=== PATIENT | female | born 1950 | race Caucasian/White ===

== ENCOUNTER 2020-09-25 07:01 | Emergency (ER) | payer MEDICARE, SELFPAY ==
--- NOTE | ~2020-09-25 | CT_ITS ---
EXAMINATION: CT ANGIOGRAM HEAD CT ANGIOGRAM NECK CLINICAL INFORMATION: Large vessel occlusion. Aphasia. COMPARISON: CT head from 09/25/2020. TECHNIQUE: Initial noncontrast parachute folder imaging of the head and neck was performed. Comparison is made with noncontrast head CT from earlier today. Test bolus sequences followed by intravenous administration 70 mL of Omnipaque 350. Helical imaging was performed in the axial plane from the aortic arch to the skull vertex. Delayed postcontrast imaging of the head was also performed. The data was processed at the sonography technologist's workstation for generation of MIP sequences. Angled MIPs and volume rendered reformatted images were also generated at an offline 3D workstation. Stenoses are assessed in accordance with NASCET criteria unless otherwise indicated. This CT examination was performed using dose optimization techniques as appropriate, variously including the following: *Automated exposure control. *Adjustment of mA and/or kV according to patient size (this includes techniques or standardized protocols for targeted exams where dose is matched to indication/reason for exam; i.e. extremities or head). *Use of iterative reconstruction technique. DLP: 1439 mGy-cm FINDINGS: CT Head: There is no evidence of acute intracranial hemorrhage or edematous territorial infarction. Scattered hypoattenuation in the periventricular and deep white matter are consistent with moderate microangiopathy. Torres-white matter differentiation is preserved. Proportional prominence of the ventricles and sulcal spaces. No evidence for obstructive hydrocephalus. No abnormal mass effect or midline shift. No extra-axial fluid collections. No pathologic intra-axial enhancement or regional oligemia. No acute soft tissue or osseous abnormalities. The mastoid air cells and paranasal sinuses are clear. Right-sided lens extraction. CT Neck: The thyroid gland and remaining cervical soft tissues are within normal limits. Advanced degenerative disc disease at C5-C6 with disc-osteophyte complex formation. Mild to moderate degenerative disc disease at C4-C5 and C6-C7. Facet and uncovertebral joint arthropathy causes osseous encroachment on the neural foramina from C4-C7. CT Upper Chest: Moderate underlying centrilobular emphysema. The visualized upper mediastinum is within normal limits. Neck CTA: Aortic Arch: Normal contour and caliber with moderate calcific atherosclerotic disease. Great Vessel Origins: No significant stenosis of the branch origins. Right Common Carotid Artery: Normal opacification without focal stenosis or occlusion. Cervical Right Internal Carotid Artery: Normal opacification without focal stenosis or occlusion. Left Common Carotid Artery: Normal opacification without focal stenosis or occlusion. Cervical Left Internal Carotid Artery: Mild calcific atherosclerotic disease of the carotid bulb and proximal internal carotid artery without flow-limiting stenosis. Cervical Right Vertebral Artery: Normal opacification without focal stenosis or occlusion. Cervical Left Vertebral Artery: Dominant. Normal opacification without focal stenosis or occlusion. Brain CTA: Intracranial Internal Carotid Arteries: Mild calcific atherosclerotic disease of the intracranial internal carotid arteries without occlusion or flow-limiting stenosis. Normal contrast opacification of the petrous, cavernous, paraophthalmic, and supraclinoid segments of the internal carotid arteries without focal stenosis. Right Anterior Cerebral Artery: Normal A1 segment. Normal opacification of the distal segments of the MAURICE. Left Anterior Cerebral Artery: Normal A1 segment. Normal opacification of the distal segments of the MAURICE. Anterior Communicating Artery: Normal. Right Middle Cerebral Artery: Normal opacification of the M1 segment of the MCA without focal stenosis or occlusion. Normal arborization of the distal segments. Left Middle Cerebral Artery: Normal opacification of the M1 segment of the MCA without focal stenosis or occlusion. Normal arborization of the distal segments. Right Vertebral Artery: Normal opacification of the V4 segment. Normal opacification of the proximal segments of the posterior inferior cerebellar artery. Left Vertebral Artery: Normal opacification of the V4 segment. Normal opacification of the proximal segments of the posterior inferior cerebellar artery. Basilar Artery: Normal opacification without focal stenosis or occlusion. Normal appearance of the proximal superior cerebellar arteries. Right Posterior Cerebral Artery: Normal P1 segment. Normal posterior communicating artery. Normal opacification of the distal segments of the MOLDER OPERATOR. Left Posterior Cerebral Artery: Normal P1 segment. Normal posterior communicating artery. Normal opacification of the distal segments of the MOLDER OPERATOR. Normal opacification of the superior sagittal, straight, transverse, and sigmoid sinuses. CT/CT angio head neck stroke IMPRESSION: 1. No evidence of acute intracranial hemorrhage or edematous territorial infarction. 2. CTA of the head and neck without proximal occlusion or flow-limiting stenosis. 3. Moderate underlying microangiopathy and generalized cerebral volume loss. 4. Emphysema. This critical result was discussed with Dr. Tadeo at 09:06 on 09/25/2020 and it was ascertained that the content and urgency of the report was understood at the time of direct communication.
--- NOTE | ~2020-09-25 | CT_ITS ---
EXAMINATION: CT HEAD WITHOUT CONTRAST (STROKE PROTOCOL) CLINICAL INFORMATION: Stroke protocol. Aphasia COMPARISON: None TECHNIQUE: Contiguous axial imaging was performed from the skull base to vertex without intravenous administration of contrast. This CT examination was performed using dose optimization techniques as appropriate, variously including the following: *Automated exposure control *Adjustment of mA and/or kV according to patient size (this includes techniques or standardized protocols for targeted exams where dose is matched to indication/reason for exam; i.e. extremities or head) *Use of iterative reconstruction technique DLP: 626 mGy-cm FINDINGS: There is no intracranial hemorrhage, hematoma, or extra-axial fluid collection. The ventricles are symmetrical but moderately dilated. Mild prominence of cortical sulci seen.. There is no hydrocephalus, edema, or mass effect. There is mild periventricular hypodensity especially in both frontal lobes but no mass effect. There is no acute infarct or mass lesion. The calvarium appears intact. There is no pneumocephalus or orbital emphysema. The visualized sinuses and middle ears and mastoid air cells show no significant mucosal thickening. There are no air-fluid levels. CT/CT head for stroke IMPRESSION: No acute intracranial process. Age-related cerebral volume loss with mild chronic small vessel ischemic changes especially in both frontal lobes. This critical result was discussed with Dr. Tadeo at 7:20 AM on 09/25/2020. It was ascertained that the content and urgency of the report was understood at the time of direct communication.
--- NOTE | 2020-09-25 07:06 | ECG_ITS ---
Test Reason : WEAKNESS Blood Pressure : / mmHG Vent. Rate : 101 BPM Atrial Rate : 101 BPM P-R Int : 166 ms QRS Dur : 070 ms QT Int : 352 ms P-R-T Axes : 057 011 065 degrees QTc Int : 456 ms Sinus tachycardia Low voltage QRS Borderline ECG No previous ECGs available Referred By: Harris Tadeo Electronically Signed By:DAVID CULP
--- NOTE | 2020-09-25 07:08 | ED.AMS ---
HPI - Altered Mental Status General Chief Complaint: Seizure Stated Complaint: STROKE ALERT,LKWT LAST EVENING Time Seen by Provider: 09/25/20 07:04 Source: EMS Mode of arrival: EMS Limitations: altered mental status History of Present Illness HPI narrative: Found in her house slumped over, no focal but no alert. Appeared mostly postictal. Symptoms started at 6:20am complaint: altered mental status Onset (ago): minute(s) Time: 06:20 Timing confirmed by: other (EMS) Severity: moderate Context: seizure disorder (question of) Related Data Previous Rx's Medication Instructions Recorded levetiracetam [Keppra] 500 mg PO BID #30 tab 09/25/20 Allergies Allergy/AdvReac Type Severity Reaction Status Date / Time No Known Allergies Allergy Verified 09/25/20 07:05 Review of Systems Review of Systems: Yes Unobtainable due to mental status Neurologic: Denies Sensory deficit (Neuro) FOR[facility], [facility] Past Medical History Medical History (Updated 09/25/20 @ 14:25 by Harris Tadeo MD) Depression Glaucoma Social History Social History Alcohol intake: never Smoking Status: Never smoker Use of substances other than those prescribed or required for medical reasons: No Advance Directives: No Advance Directives Information Provided: Yes Physical Exam Vital Signs: Vital Signs: Last Vital Signs Pulse 84 09/25/20 11:18 Resp 16 09/25/20 11:18 BP 131/72 09/25/20 11:18 Pulse Ox 100 09/25/20 11:18 Body Mass Index 22.3 Const: General: healthy appearing Nutritional Appearance: average body habitus Limitations: other limitations (nonverbal) HENMT: Head: Yes normal to inspection Ears: external ears normal General nose exam: Normal external nose present Mouth: Normal oral and palatal mucosa present and oropharynx normal Throat: Yes posterior oropharynx normal Eyes: General: appearance normal, both eyes and all related structures Neck: Other: supple Neck: Yes normal visual inspection Chest: Chest palpation & inspection: normal inspection of the chest Resp: Auscultation: clear to auscultation bilaterally Cardio: Jugular venous distension: no JVD Rate: regular rate Rhythm: regular rhythm Heart sounds: S1 normal heart sound present and S2 normal heart sound present GI: Inspection: Yes normal to inspection Palpation (GI): Soft to palpation, nontender and No hepatosplenomegaly present Auscultation: normal bowel sounds : General: Yes no CVA tenderness Back/Spine/Pelvis: Back: no CVA tenderness Skin: General skin exam: no rashes or lesions noted Neuro: Other: Patient is moving all extremities but is non verbal Cranial nerves: Yes CN's II-XII intact bilaterally Motor exam (neuro): 5/5 motor strength present throughout Sensory Exam: No Sensory deficit (Neuro) Extrem: General: Yes normal to inspection Psych: Appearance: grossly normal NIH Stroke Scale Internal: Initial- Upon Arrival Time: 07:11 Level of Consciousness: Alert Level of Consciousness Questions: Answers neither question correctly Level of Consciousness Commands: Performs neither task correctly Best Gaze: Normal Visual: No visual loss Facial Palsy: Normal Motor Arm (Right): No drift Motor Arm (Left): No drift Motor Leg (Right): No drift Motor Leg (Left): No drift Limb Ataxia: Absent Sensory: Normal Best Language: Mute, global aphasia Dysarthia: Normal Extinction and Inattention: No abnormality Score: 7 Course Course Course Narrative: Dr. Jonathan Marks is her provider. She is nonverbal from dementia at baseline and has had one prior seizure. Reevaluation(s) Reevaluation #1: Patient completely at baseline, case management involved, will start Keppra per discussion with Dr. Marks. will dc home Time: 14:23 MDM - Altered Mental Status Lab Data Result diagrams: 09/25/20 09:40 09/25/20 09:40 Labs: Lab Results 09/25/20 09/25/20 09/25/20 Range/Units 09:40 09:40 09:40 WBC 9.4 (4.8-10.8) X10*3/uL RBC 4.24 (4.20-5.50) X10*6/uL Hgb 12.6 (12.0-16.0) g/dl Hct 39.1 (37-47) % MCV 92.2 (80-98) fL MCH 29.7 (27.0-33.0) pg MCHC 32.2 (31.0-35.0) g/dl RDW 12.8 (11.0-16.0) % Plt Count 319 (160-400) X10*3/uL MPV 7.9 L (9.4-12.3) fL Immature Gran % (Auto) 0.4 (0.0-0.4) % Neut % (Auto) 87.1 H (45-73) % Lymph % (Auto) 7.0 L (20-40) % [place] % (Auto) 5.0 (2-11) % Eos % (Auto) 0.2 (0-4) % Baso % (Auto) 0.3 (0-2) % Lymph # (Auto) 0.7 L (1.2-4.9) X10*3/uL [place] # (Auto) 0.5 (0.1-1.2) X10*3/uL Eos # (Auto) 0.0 (0.0-0.4) X10*3/uL Baso # (Auto) 0.0 (0.0-0.2) X10*3/uL Abs Immat Gran (auto) 0.04 H (0.00-0.03) X10*3/uL Absolute Neuts (auto) 8.2 (2.0-8.3) X10*3/uL Absolute Nucleated RBC 0.000 (0.0-0.012) X10*3/uL Nucleated RBC % (auto) 0.0 (0.0-0.2) /100WBC Smear Tech's Comments VERIFIED PT 11.9 (10.8-13.0) SEC INR 1.0 (0.9-1.1) APTT 36.0 (24.1-38.0) SEC Sodium 137 (135-145) mmol/L Potassium 4.7 (3.3-5.1) mmol/L Chloride 105 (96-108) mmol/L Carbon Dioxide 24 (22-29) mmol/L Anion Gap 13 (12-20) BUN 17 H (9-16) mg/dL Creatinine 0.90 (0.5-1.4) mg/dL Estim Creat Clear Calc 48.8 Estimated GFR > 60 POC Glucose (60-115) mg/dL Random Glucose 94 (60-115) mg/dL Calcium 9.3 (8.4-10.2) mg/dL Total Creatine Kinase 93 (26-140) U/L Troponin I High Sens (<3.5-17.0) ng/L 09/25/20 09/25/20 Range/Units 09:40 12:47 WBC (4.8-10.8) X10*3/uL RBC (4.20-5.50) X10*6/uL Hgb (12.0-16.0) g/dl Hct (37-47) % MCV (80-98) fL MCH (27.0-33.0) pg MCHC (31.0-35.0) g/dl RDW (11.0-16.0) % Plt Count (160-400) X10*3/uL MPV (9.4-12.3) fL Immature Gran % (Auto) (0.0-0.4) % Neut % (Auto) (45-73) % Lymph % (Auto) (20-40) % [place] % (Auto) (2-11) % Eos % (Auto) (0-4) % Baso % (Auto) (0-2) % Lymph # (Auto) (1.2-4.9) X10*3/uL [place] # (Auto) (0.1-1.2) X10*3/uL Eos # (Auto) (0.0-0.4) X10*3/uL Baso # (Auto) (0.0-0.2) X10*3/uL Abs Immat Gran (auto) (0.00-0.03) X10*3/uL Absolute Neuts (auto) (2.0-8.3) X10*3/uL Absolute Nucleated RBC (0.0-0.012) X10*3/uL Nucleated RBC % (auto) (0.0-0.2) /100WBC Smear Tech's Comments PT (10.8-13.0) SEC INR (0.9-1.1) APTT (24.1-38.0) SEC Sodium (135-145) mmol/L Potassium (3.3-5.1) mmol/L Chloride (96-108) mmol/L Carbon Dioxide (22-29) mmol/L Anion Gap (12-20) BUN (9-16) mg/dL Creatinine (0.5-1.4) mg/dL Estim Creat Clear Calc Estimated GFR POC Glucose 88 (60-115) mg/dL Random Glucose (60-115) mg/dL Calcium (8.4-10.2) mg/dL Total Creatine Kinase (26-140) U/L Troponin I High Sens 7.5 (<3.5-17.0) ng/L Imaging Data CT scan - head: Radiologist's impression: atrophy nothing acute CT Angio head and neck: Radiologist's impression: no LVO ECG Data ECG #1: Attestation: I personally reviewed and interpreted this ECG as follows: Interpretation: sinus rate 100, no st or twave changes Critical Care Time Critical Care Time Attestation: I spent 40 minutes of critical care, with interventions, assessments, speaking to patient, consultants, and family. Discharge Plan Discharge Clinical Impression: Generalized seizure Dementia Qualifiers: Dementia type: Alzheimer's Alzheimer's disease onset: unspecified onset Dementia behavioral disturbance: with behavioral disturbance Qualified Code(s): G30.9 - Alzheimer's disease, unspecified Patient Disposition: Home, Self-Care Instructions: New-Onset Seizure in Adults (ED) Prescriptions: New levetiracetam [Keppra] 500 mg tablet 500 mg PO BID Qty: 30 RF: 0 Referrals: [facility] [Outside] - 2 days
[2020-09-25 07:38] VITALS: BP 129/58; BP 142/84; PULSE 70; PULSE 99; RESP 16; O2SAT 97; BMI 22.3
[2020-09-25] MEDS: iohexoL 350 MG/ML 100 ML INFUS..BTL IV (07:39)
[2020-09-25] MEDS: LORazepam 2 MG/ML VIAL 0.5 MG IVPUSH (09:01)
[2020-09-25 09:51] LABS: Prothrombin Time 11.9 SEC (10.8-13.0)
[2020-09-25 09:53] LABS: Basophils Percent Auto 0.3 % (0-2); Eosinophils Percent Auto 0.2 % (0-4); Hematocrit 39.1 % (37-47); Hemoglobin 12.6 g/dl (12.0-16.0); Imm Gran Abs Auto 0.04 X10*3/uL (0.00-0.03); Imm Gran Pct Auto 0.4 % (0.0-0.4); Lymphocytes Absolute Auto 0.7 X10*3/uL (1.2-4.9); MANUAL DIFF FLAG SCAN; Mean Corpuscular HGB Conc 32.2 g/dl (31.0-35.0); Mean Corpuscular Hemoglobin 29.7 pg (27.0-33.0); Mean Corpuscular Volume 92.2 fL (80-98); Mean Platelet Volume 7.9 fL (9.4-12.3); Monocytes Absolute Auto 0.5 X10*3/uL (0.1-1.2); Neutrophils Absolute Auto 8.2 X10*3/uL (2.0-8.3); Neutrophils Percent Auto 87.1 % (45-73); Platelet Count 319 X10*3/uL (160-400); Red Blood Count 4.24 X10*6/uL (4.20-5.50); Red Cell Distribution Width 12.8 % (11.0-16.0); SCAN SMEAR FLAG 1; White Blood Count 9.4 X10*3/uL (4.8-10.8)
[2020-09-25 09:54] LABS: Stroke Lab Use COMPLETE
[2020-09-25 10:19] LABS: Anion Gap 13 (12-20); Blood Urea Nitrogen 17 mg/dL (9-16); Calcium 9.3 mg/dL (8.4-10.2); Carbon Dioxide 24 mmol/L (22-29); Chloride 105 mmol/L (96-108); Creatinine Clr Calc Pharmacy 48.8; Estimated Glomerular Filt Rate > 60; Glucose Random 94 mg/dL (60-115); Potassium 4.7 mmol/L (3.3-5.1); Sodium 137 mmol/L (135-145)
[2020-09-25 10:20] VITALS: BP 129/58; PULSE 99
[2020-09-25 10:25] LABS: Troponin-I High Sensitivity 7.5 ng/L (<3.5-17.0)
[2020-09-25] MEDS: levETIRAcetam 750 MG in 0.9 % Sodium Chloride 100 ML 400 MG IV (10:30)
[2020-09-25 10:32] LABS: SLIDE REVIEW VERIFIED
[2020-09-25 11:18] VITALS: BP 131/72; PULSE 84; RESP 16; O2SAT 100
[2020-09-25 12:51] LABS: Glucose, Whole Blood 88 mg/dL (60-115)
--- NOTE | 2020-09-25 14:17 | MHC.CM.ED ---
Received case management consult from Dr Tadeo. Jenny came to the ER with AMS. Per Dr Tadeo, it is believed patient is having seizures. Physical therapy completed. 24 hour care or steel engraver care is being recommended. Met with patient, Blair and sister Nikki. Patient lives with Blair. Patient is typically indpendent in ambulation but does require total dependent care due to advancing dementia. Blair has tried to get VNA services through PCP's office but has not been able to. Referral made to [facility] at Blair's request. Patient will d/c home with . Blair will transport patient home. Blair is requesting to speak to Dr Tadeo about medications. Dr Tadeo aware. Continue to monitor for d/c needs.
[2020-09-25 14:37] VITALS: BP 134/76; PULSE 86; RESP 18; TEMP 37; O2SAT 100
== END 2020-09-25 14:44 | disposition home or self-care (01) ==
PROVIDERS: Emergency Provider Emergency Medicine; PCP Hospitalist
DX: G40.409 Other generalized epilepsy and epileptic syndromes, not intractable, without status epilepticus (principal); G30.9 Alzheimer's disease, unspecified; F02.80 Dementia in other diseases classified elsewhere, unspecified severity, without behavioral disturbance, psychotic disturbance, mood disturbance, and anxiety
CPT/HCPCS: 36415; 70450; 70496; 70498; 80048; 82550; 82947; 84484; 85025; 85610; 85730; 93005; 96374; 96375; 97162; 99284; 99291; J1953; J2060; Q9967

== ENCOUNTER 2021-03-27 11:26 | Observation (INO) | payer MEDICARE, SELFPAY ==
[2021-03-27] VITALS (7 sets, daily range): BP systolic 96–162; BP diastolic 56–98; PULSE 82–97; RESP 12–18; TEMP 37.1; O2SAT 96–99; BMI 21.5
--- NOTE | ~2021-03-27 | CT_ITS ---
EXAMINATION: CT HEAD WITHOUT CONTRAST CLINICAL INFORMATION: Declining mentation in 48 hours. COMPARISON: None TECHNIQUE: Contiguous axial imaging was performed from the skull base to vertex without intravenous administration of contrast. This CT examination was performed using dose optimization techniques as appropriate, variously including the following: *Automated exposure control *Adjustment of mA and/or kV according to patient size (this includes techniques or standardized protocols for targeted exams where dose is matched to indication/reason for exam; i.e. extremities or head) *Use of iterative reconstruction technique DLP: 684 mGy-cm FINDINGS: There is no evidence of acute intracranial hemorrhage or territorial infarction. No abnormal mass effect or midline shift is seen. Torres to white matter differentiation is well preserved. Mild periventricular hypodensity seen in both cerebral hemispheres. No extra-axial fluid collections are identified. The lateral ventricles are symmetrical but slightly enlarged with mild prominence of cortical sulci.. The osseous structures and soft tissues are normal. The mastoid air cells and visualized portions of the paranasal sinuses are well aerated. CT/CT head/brain wo con IMPRESSION: No acute intracranial process seen.
--- NOTE | ~2021-03-27 | XR_ITS ---
EXAMINATION: XR CHEST CLINICAL INFORMATION: Elevated white count. Change in mental status. COMPARISON: None TECHNIQUE: Frontal view of the chest was obtained. FINDINGS: No significant abnormality is noted involving the heart, lungs, mediastinum, bony thorax or soft tissues. XR/XR chest 1V IMPRESSION: Unremarkable chest examination.
--- NOTE | 2021-03-27 11:39 | ED_ITS ---
HPI - Altered Mental Status General Chief Complaint: Altered Mental Status Stated Complaint: WORSENING AMS Time Seen by Provider: 03/27/21 11:38 Source: EMS Mode of arrival: EMS Limitations: altered mental status History of Present Illness HPI narrative: patient with decreased mental status now improving. patient seen by me in September with very similar episode during that visit she had a seizure or what sounded like a seizure and was started on Keppra. Unsure if she is still on keppra. Head CT had severe atrophy last visit. states that the last 48 hour progressive decline in all aspects of ADLs including walking. states no seizure activity. MD complaint: altered mental status Onset (ago): hour(s) Severity: similar to previous episodes Related Data Home Medications Medication Instructions Recorded Confirmed memantine 10 mg tablet 1 tab PO BID 03/27/21 03/27/21 netarsudil 0.02 % eye drops 1 drp OPHTHALMIC (EYE) DAILY 03/27/21 03/27/21 (Rhopressa) quetiapine 50 mg tablet 50 mg PO QID 03/27/21 03/27/21 sertraline 100 mg tablet 1 tab PO DAILY 03/27/21 03/27/21 travoprost 0.004 % eye drops 1 drp OPHTHALMIC (EYE) BEDTIME 03/27/21 03/27/21 Previous Rx's Medication Instructions Recorded levetiracetam 500 mg tablet 500 mg PO BID #30 tab 09/25/20 (Keppra) Allergies Allergy/AdvReac Type Severity Reaction Status Date / Time No Known Allergies Allergy Verified 09/25/20 07:05 Review of Systems Review of Systems: Yes Unobtainable due to mental status PMFSH Past Medical History Medical History (Updated 03/27/21 @ 17:51 by George Parikh MD) Dementia Depression Glaucoma Seizure Social History Social History Alcohol intake: never Patient Tobacco Use Status: Never used Tobacco Use of substances other than those prescribed or required for medical reasons: No Advance Directives: No Advance Directives Information Provided: No Physical Exam Vital Signs: Vital Signs: Last Vital Signs Temp 98.7 F 03/27/21 12:00 Pulse 82 03/28/21 06:09 Resp 19 03/28/21 06:09 BP 117/84 03/28/21 06:09 Pulse Ox 96 03/27/21 17:16 Body Mass Index 21.5 Course Reevaluation(s) Reevaluation #1: did not find a toxic metabolic reason for altered mental status, head CT no change, no UTI, no electrolyte abnormalities. Patient cannot go home in this condition, awaiting case management. Time: 15:29 Reevaluation #2: spoke with case management who feels patient can be placed in observation for potential seizure and prolonged postictal phase. Time: 15:57 MDM - Altered Mental Status Lab Data Result diagrams: 03/27/21 12:07 03/27/21 12:32 Labs: Lab Results 03/27/21 03/27/21 03/27/21 Range/Units 12:07 12:31 12:32 WBC 12.7 H (4.8-10.8) X10*3/uL RBC 4.21 (4.20-5.50) X10*6/uL Hgb 12.4 (12.0-16.0) g/dl Hct 38.8 (37.0-47.0) % MCV 92.2 (80.0-98.0) fL MCH 29.5 (27.0-33.0) pg MCHC 32.0 (31.0-35.0) g/dl RDW 13.4 (11.0-16.0) % Plt Count 275 (160-400) X10*3/uL MPV Not Reportable Immature Gran % (Auto) 0.2 (0.0-0.4) % Neut % (Auto) 87.5 H (45-73) % Lymph % (Auto) 5.3 L (20-40) % [place] % (Auto) 6.8 (2-11) % Eos % (Auto) 0.0 (0-4) % Baso % (Auto) 0.2 (0-2) % Lymph # (Auto) 0.7 L (1.2-4.9) X10*3/uL [place] # (Auto) 0.9 (0.1-1.2) X10*3/uL Eos # (Auto) 0.0 (0.0-0.4) X10*3/uL Baso # (Auto) 0.0 (0.0-0.2) X10*3/uL Abs Immat Gran (auto) 0.03 (0.00-0.03) X10*3/uL Absolute Neuts (auto) 11.1 H (2.0-8.3) x10*3/uL Absolute Nucleated RBC 0.000 (0.0-0.012) X10*3/uL Nucleated RBC % (auto) 0.0 (0.0-0.2) /100WBC Smear Tech's Comments VERIFIED Sodium 140 (135-145) mmol/L Potassium 4.5 (3.3-5.1) mmol/L Chloride 110 H (96-108) mmol/L Carbon Dioxide 20 L (22-29) mmol/L Anion Gap 15 (12-20) BUN 29 H D (9-16) mg/dL Creatinine 1.08 (0.5-1.4) mg/dL Estim Creat Clear Calc 33.7 Estimated GFR 50 Random Glucose 117 H (60-115) mg/dL Calcium 9.7 (8.4-10.2) mg/dL Troponin I High Sens (<3.5-17.0) ng/L Urine Color YELLOW Urine Appearance CLEAR Urine pH 6.0 (5.0-8.0) Ur Specific [place] >= 1.030 H (1.005-1.025) Urine Protein TRACE (NEG-TRACE) MG/DL Urine Glucose (UA) NEG (NEG) MG/DL Urine Ketones NEG (NEG) MG/DL Urine Blood TRACE (NEG) Urine Nitrite NEG (NEG) Ur Leukocyte Esterase NEG (NEG) Urine RBC 10-14 H (0) /HPF Urine WBC 0-2 (0-4) /HPF Ur Squamous Epith Cells TRACE /LPF Urine Bacteria 1+ /LPF COVID-19 (JEY) (Negative) COVID-19 Clin Com 03/27/21 03/27/21 Range/Units 12:32 14:17 WBC (4.8-10.8) X10*3/uL RBC (4.20-5.50) X10*6/uL Hgb (12.0-16.0) g/dl Hct (37.0-47.0) % MCV (80.0-98.0) fL MCH (27.0-33.0) pg MCHC (31.0-35.0) g/dl RDW (11.0-16.0) % Plt Count (160-400) X10*3/uL MPV Immature Gran % (Auto) (0.0-0.4) % Neut % (Auto) (45-73) % Lymph % (Auto) (20-40) % [place] % (Auto) (2-11) % Eos % (Auto) (0-4) % Baso % (Auto) (0-2) % Lymph # (Auto) (1.2-4.9) X10*3/uL [place] # (Auto) (0.1-1.2) X10*3/uL Eos # (Auto) (0.0-0.4) X10*3/uL Baso # (Auto) (0.0-0.2) X10*3/uL Abs Immat Gran (auto) (0.00-0.03) X10*3/uL Absolute Neuts (auto) (2.0-8.3) x10*3/uL Absolute Nucleated RBC (0.0-0.012) X10*3/uL Nucleated RBC % (auto) (0.0-0.2) /100WBC Smear Tech's Comments Sodium (135-145) mmol/L Potassium (3.3-5.1) mmol/L Chloride (96-108) mmol/L Carbon Dioxide (22-29) mmol/L Anion Gap (12-20) BUN (9-16) mg/dL Creatinine (0.5-1.4) mg/dL Estim Creat Clear Calc Estimated GFR Random Glucose (60-115) mg/dL Calcium (8.4-10.2) mg/dL Troponin I High Sens 4.9 (<3.5-17.0) ng/L Urine Color Urine Appearance Urine pH (5.0-8.0) Ur Specific [place] (1.005-1.025) Urine Protein (NEG-TRACE) MG/DL Urine Glucose (UA) (NEG) MG/DL Urine Ketones (NEG) MG/DL Urine Blood (NEG) Urine Nitrite (NEG) Ur Leukocyte Esterase (NEG) Urine RBC (0) /HPF Urine WBC (0-4) /HPF Ur Squamous Epith Cells /LPF Urine Bacteria /LPF COVID-19 (JEY) Negative (Negative) COVID-19 Clin Com See Note Imaging Data CT scan - head: Radiologist's impression: FINDINGS: There is no evidence of acute intracranial hemorrhage or territorial infarction. No abnormal mass effect or midline shift is seen. Torres to white matter differentiation is well preserved. Mild periventricular hypodensity seen in both cerebral hemispheres. No extra-axial fluid collections are identified. The lateral ventricles are symmetrical but slightly enlarged with mild prominence of cortical sulci.. The osseous structures and soft tissues are normal. The mastoid air cells and visualized portions of the paranasal sinuses are well aerated. ? CT/CT head/brain wo con IMPRESSION: No acute intracranial process seen. Chest x-ray: Radiologist's impression: IMPRESSION: Unremarkable chest examination. ? ECG Data ECG #1: Attestation: I personally reviewed and interpreted this ECG as follows: Interpretation: poor quality can't interpret ECG #2: Attestation: I personally reviewed and interpreted this ECG as follows: Interpretation: sinus rate 95, old inferior wall ID, no ST or twave changes Discharge Plan Discharge Clinical Impression: Dementia, Seizure Altered mental status Qualifiers: Altered mental status type: unspecified Qualified Code(s): R41.82 - Altered mental status, unspecified Patient Disposition: Admitted as Observation
--- NOTE | 2021-03-27 11:48 | PHA.MEDREC ---
Pharmacy Consult ? Medication Reconciliation Pharmacy has completed the medication reconciliation. Patient with AMS. Contact [facility] to verify medications were picked up as well as the directions. Adrianna Schmidt, LindaD
--- NOTE | 2021-03-27 11:49 | ECG_ITS ---
Test Reason : WEAKNESS Blood Pressure : / mmHG Vent. Rate : 117 BPM Atrial Rate : 086 BPM P-R Int : 000 ms QRS Dur : 058 ms QT Int : 238 ms P-R-T Axes : 000 003 069 degrees QTc Int : 332 ms Poor data quality Normal sinus rhythm RSR' or QR pattern in V1 suggests right ventricular conduction delay Left axis deviation Nonspecific T wave abnormality Low voltage QRS Abnormal ECG When compared with ECG of 25-SEP-2020 07:48, T wave amplitude has decreased in Lateral leads Referred By: Harris Taedo Electronically Signed By:LIONEL VALDOVINOS MD
[2021-03-27 12:13] LABS: Hemoglobin 12.4 g/dl (12.0-16.0); MANUAL DIFF FLAG SCAN; PLT CLUMP 1; SCAN SMEAR FLAG 1
[2021-03-27 12:15] LABS: Basophils Percent Auto 0.2 % (0-2); Hematocrit 38.8 % (37.0-47.0); Imm Gran Abs Auto 0.03 X10*3/uL (0.00-0.03); Imm Gran Pct Auto 0.2 % (0.0-0.4); Lymphocytes Absolute Auto 0.7 X10*3/uL (1.2-4.9); Lymphocytes Percent Auto 5.3 % (20-40); Mean Corpuscular Hemoglobin 29.5 pg (27.0-33.0); Mean Corpuscular Volume 92.2 fL (80.0-98.0); Monocytes Absolute Auto 0.9 X10*3/uL (0.1-1.2); Monocytes Percent Auto 6.8 % (2-11); Neutrophils Absolute Auto 11.1 x10*3/uL (2.0-8.3); Neutrophils Percent Auto 87.5 % (45-73); Red Blood Count 4.21 X10*6/uL (4.20-5.50); Red Cell Distribution Width 13.4 % (11.0-16.0); White Blood Count 12.7 X10*3/uL (4.8-10.8)
[2021-03-27 12:35] LABS: Platelet Count 275 X10*3/uL (160-400); SLIDE REVIEW VERIFIED
[2021-03-27 12:55] LABS: Appearance Urine CLEAR; Color Urine YELLOW; Glucose Urine UA NEG (NEG); Leukocyte Esterase Urine NEG (NEG); Nitrite Urine NEG (NEG); Specific Gravity - Urine >= 1.030 (1.005-1.025); UACC Culture Trigger NO; Urine Blood TRACE (NEG); Urine Ketones NEG (NEG); Urine Protein TRACE MG/DL (NEG-TRACE)
[2021-03-27 12:59] LABS: Anion Gap 15 (12-20); Blood Urea Nitrogen 29 mg/dL (9-16); Calcium 9.7 mg/dL (8.4-10.2); Carbon Dioxide 20 mmol/L (22-29); Chloride 110 mmol/L (96-108); Creatinine Clr Calc Pharmacy 33.7; Estimated Glomerular Filt Rate 50; Glucose Random 117 mg/dL (60-115); Potassium 4.5 mmol/L (3.3-5.1); Sodium 140 mmol/L (135-145)
[2021-03-27 13:06] LABS: Troponin-I High Sensitivity 4.9 ng/L (<3.5-17.0)
[2021-03-27 13:09] LABS: Bacteria Urine 1+ /LPF; Squamous Epithelial Cell Urine TRACE /LPF; WBC Urine 0-2 /HPF (0-4)
--- NOTE | 2021-03-27 13:54 | ECG_ITS ---
Test Reason : weakness Blood Pressure : / mmHG Vent. Rate : 099 BPM Atrial Rate : 099 BPM P-R Int : 176 ms QRS Dur : 058 ms QT Int : 348 ms P-R-T Axes : 032 -08 079 degrees QTc Int : 446 ms Poor data quality Sinus rhythm Low voltage QRS Nonspecific T wave abnormality Abnormal ECG When compared with ECG of 27-MAR-2021 13:47, No significant changes seen Referred By: Harris Tadeo Electronically Signed By:LIONEL VALDOVINOS MD
[2021-03-27] MEDS: 0.9 % Sodium Chloride 500 ML 999 ML IV (14:32)
[2021-03-27 14:37] LABS: COVID-19 Test Negative (Negative)
--- NOTE | 2021-03-27 17:49 | P.HPHOSP_ITS ---
History of Present Illness Date of Service: 03/27/21 Attending physician on admission: George Parikh Chief Complaint: Altered mental status 70 female with [place] dementia that is progressively worsening over the last 5 years, seizure d/0 brought ED to be evaluated by family out of concern that she has been declining over the last couple days, and in general has been progressively declinin, being less communicative, less interactive, and poor oral intake as well, she has had some generalized tremors that she has been having also over the time and concern that these could be manifestion of seizure, but clearly does not appear to be seizure.. She is essentially non communicative and history was provided by at the bedside. Work up here with UA unremarkable, CT of head no acute finding, ED is requesting observation Review of Systems Review of Systems: Yes all other systems are reviewed and are negative [facility] Medical History (Updated 03/27/21 @ 17:51 by George Parikh MD) Dementia Depression Glaucoma Seizure Pertinent family history: no early dementia Social History Alcohol intake: never Patient Tobacco Use Status: Never used Tobacco Use of substances other than those prescribed or required for medical reasons: No Advance Directives: No Advance Directives Information Provided: No Meds Allergies Allergy/AdvReac Type Severity Reaction Status Date / Time No Known Allergies Allergy Verified 09/25/20 07:05 Active Medications: Current Medications Sodium Chloride (0.9 % Sodium Chloride Flush 3 Ml Syringe) 3 ml IVFLUSH [facility] Medications Medication Instructions Recorded Confirmed Last Taken Type memantine 10 mg tablet 1 tab PO BID 03/27/21 03/27/21 Unknown History netarsudil 0.02 % eye drops 1 drp OPHTHALMIC (EYE) DAILY 03/27/21 03/27/21 Unknown History (Rhopressa) quetiapine 50 mg tablet 50 mg PO QID 03/27/21 03/27/21 Unknown History sertraline 100 mg tablet 1 tab PO DAILY 03/27/21 03/27/21 Unknown History travoprost 0.004 % eye drops 1 drp OPHTHALMIC (EYE) BEDTIME 03/27/21 03/27/21 Unknown History Physical Exam Vital Signs and Narrative: Vital Signs: Last Vital Signs Temp 98.7 F 03/27/21 12:00 Pulse 82 03/27/21 17:16 Resp 18 03/27/21 17:16 BP 96/60 03/27/21 17:16 Pulse Ox 96 03/27/21 17:16 Body Mass Index 21.5 Results Labs CBC and Chem 7: 03/27/21 12:07 03/27/21 12:32 Labs: Laboratory Results - last 24 hr 03/27/21 03/27/21 03/27/21 12:07 12:31 12:32 MCV 92.2 MCH 29.5 MCHC 32.0 RDW 13.4 Plt Count 275 MPV Not Reportable Immature Gran % (Auto) 0.2 Neut % (Auto) 87.5 H Lymph % (Auto) 5.3 L [place]imer % (Auto) 6.8 Eos % (Auto) 0.0 Baso % (Auto) 0.2 Lymph # (Auto) 0.7 L [place] # (Auto) 0.9 Eos # (Auto) 0.0 Baso # (Auto) 0.0 Abs Immat Gran (auto) 0.03 Absolute Neuts (auto) 11.1 H Absolute Nucleated RBC 0.000 Nucleated RBC % (auto) 0.0 Smear Tech's Comments VERIFIED Anion Gap 15 Estim Creat Clear Calc 33.7 Estimated GFR 50 Random Glucose 117 H Calcium 9.7 Troponin I High Sens Urine Color YELLOW Urine Appearance CLEAR Urine pH 6.0 Ur Specific [place] >= 1.030 H Urine Protein TRACE Urine Glucose (UA) NEG Urine Ketones NEG Urine Blood TRACE Urine Nitrite NEG Ur Leukocyte Esterase NEG Urine RBC 10-14 H Urine WBC 0-2 Ur Squamous Epith Cells TRACE Urine Bacteria 1+ COVID-19 (JEY) COVID-19 Clin Com 03/27/21 03/27/21 12:32 14:17 MCV MCH MCHC RDW Plt Count MPV Immature Gran % (Auto) Neut % (Auto) Lymph % (Auto) Latimer % (Auto) Eos % (Auto) Baso % (Auto) Lymph # (Auto) Latimer # (Auto) Eos # (Auto) Baso # (Auto) Abs Immat Gran (auto) Absolute Neuts (auto) Absolute Nucleated RBC Nucleated RBC % (auto) Smear Tech's Comments Anion Gap Estim Creat Clear Calc Estimated GFR Random Glucose Calcium Troponin I High Sens 4.9 Urine Color Urine Appearance Urine pH Ur Specific [place] Urine Protein Urine Glucose (UA) Urine Ketones Urine Blood Urine Nitrite Ur Leukocyte Esterase Urine RBC Urine WBC Ur Squamous Epith Cells Urine Bacteria COVID-19 (JEY) Negative COVID-19 Clin Com See Note Imaging Radiologist's Impressions: Impressions Head CT 03/27/21 11:53 IMPRESSION: No acute intracranial process seen. Chest X-Ray 03/27/21 13:34 IMPRESSION: Unremarkable chest examination. Assessment and Plan (1) Dementia: Qualifiers: Alzheimer's disease onset: early-onset Dementia behavioral disturbance: with behavioral disturbance Dementia type: Alzheimer's Qualified Code(s): G30.0 - Alzheimer's disease with early onset; F02.81 - Dementia in other diseases classified elsewhere with behavioral disturbance Status: Inactive 70/F with dementia, ? seizure desorder pesenting with progressive declining, tremors of unclear nature.. I suspect this is manifestation of pregressive [place] dementia. Plan: Observe overnight, hydrate, get Neuro input, continue usual seizure meds. doesn't want any heroic or aggresive Quality Stroke Does the patient have a stroke diagnosis?: No VTE Prior VTE?: No VTE Risk Level:: Medical - moderate - high VTE Device Contraindication: Treatment Not Indicated VTE Drug Contraindication: N/A - Med Ordered
[2021-03-27] MEDS: 0.9 % Sodium Chloride 1,000 ML 125 ML IVCONT (20:00)
[2021-03-27] MEDS: QUEtiapine Fumarate 50 MG TABLET PO (21:00)
[2021-03-27] MEDS: levETIRAcetam 500 MG TABLET PO (21:00)
[2021-03-27] MEDS: Memantine HCl 10 MG TABLET PO (21:00)
--- NOTE | 2021-03-27 23:26 | PC.NURSE ---
PT WAKES TO VOICE, DENIES ANY COMPLAINTS. RESPIRATIONS EASY, N/L. SKIN W/D. WILL CONTINUE TO MONITOR PT.
--- NOTE | 2021-03-28 | EEG_ITS ---
This is a 16-channel EEG with an EKG lead. The patient is reported awake during the tracing. Background EEG rhythm is almost continuously contaminated per muscle artifacts, but at times was more clearly visible and was low to medium amplitude, mixed theta and delta. Some eye opening and closure artifacts were noted. Photic stimulation did not produce any significant driving and hyperventilation was not performed. IMPRESSION: Limited EEG revealing frequent muscle artifacts, but no obvious tendency for seizure disorder. MD TERRANCE Guillory/MEI / [phone]
[2021-03-28] MEDS: 0.9 % Sodium Chloride Flush 3 ML SYRINGE IVFLUSH ×2 (01:10→10:25)
[2021-03-28] MEDS: 0.9 % Sodium Chloride 1,000 ML 125 ML IVCONT ×2 (01:14→10:41)
--- NOTE | 2021-03-28 01:25 | PC.NURSE ---
PT AWAKE AND STARING AT WALL. PT IN NAD. RESPIRATIONS N/L. WILL CONTINUE TO MONITOR PT.
--- NOTE | 2021-03-28 05:05 | PC.NURSE ---
pt sleeping, wakes to voice. respirations easy, n/l. pt awaiting for room assignment.
[2021-03-28 06:09] VITALS: BP 117/84; PULSE 82; RESP 19
--- NOTE | 2021-03-28 08:35 | PC.NURSE ---
plan for pt to get eeg and dc
--- NOTE | 2021-03-28 08:42 | P.CNNE_ITS ---
History of Present Illness Data of Consult Service Date: 03/28/21 Primary Care Provider: Jonathan CONTRERAS Reason for consult: Change in mental status 70 years old woman with underlying history of severe dementia minimally communicated of living at home was brought by family stating that there was sudden change in her mental status. Apparently she has been noted to have somewhat similar symptoms recently and was tentatively started on levetiracetam for suspicion of seizure disorder. I saw her in emergency room and she was unable to provide any meaningful history. Review of Systems Review of Systems: No recent trauma or cold or flu-like illness PMFSH Past Medical History Medical History (Updated 03/28/21 @ 08:45 by Srinivas Porter MD) Dementia Depression Glaucoma Seizure Social History Social History Alcohol intake: never Patient Tobacco Use Status: Never used Tobacco Use of substances other than those prescribed or required for medical reasons: No Advance Directives: No Advance Directives Information Provided: No Meds Allergies Allergy/AdvReac Type Severity Reaction Status Date / Time No Known Allergies Allergy Verified 09/25/20 07:05 Active Medications: Current Medications Sodium Chloride (Ns) 1,000 mls @ 125 mls/hr IVCONT .Q8H [facility] Last Admin: 03/28/21 01:14 Dose: 125 mls/hr Documented by: Latanoprost (Latanoprost 0.005 % Ophth Tonia 2.5 Ml Drops) 1 drop EYE-BOTH BEDTIME [facility] Last Admin: 03/28/21 01:11 Dose: Not Given Documented by: Levetiracetam (Levetiracetam 500 Mg Tablet) 500 mg PO BID [facility] Last Admin: 03/27/21 21:00 Dose: 500 mg Documented by: Memantine (Memantine Hcl 10 Mg Tablet) 10 mg PO BID [facility] Last Admin: 03/27/21 21:00 Dose: 10 mg Documented by: Quetiapine Fumarate (Quetiapine Fumarate 50 Mg Tablet) 50 mg PO QID [facility] Last Admin: 03/27/21 21:00 Dose: 50 mg Documented by: Sertraline HCl (Sertraline Hcl 100 Mg Tablet) 100 mg PO DAILY [facility] Sodium Chloride (0.9 % Sodium Chloride Flush 3 Ml Syringe) 3 ml IVFLUSH QSHIFT [facility] Last Admin: 03/28/21 01:10 Dose: 3 ml Documented by: Home Medications Medication Instructions Recorded Confirmed Last Taken Type memantine 10 mg tablet 1 tab PO BID 03/27/21 03/27/21 Unknown History netarsudil 0.02 % eye drops 1 drp OPHTHALMIC (EYE) DAILY 03/27/21 03/27/21 Unknown History (Rhopressa) quetiapine 50 mg tablet 50 mg PO QID 03/27/21 03/27/21 Unknown History sertraline 100 mg tablet 1 tab PO DAILY 03/27/21 03/27/21 Unknown History travoprost 0.004 % eye drops 1 drp OPHTHALMIC (EYE) BEDTIME 03/27/21 03/27/21 Unknown History Physical Exam Vital Signs: Vital Signs: Last Vital Signs Temp 98.7 F 03/27/21 12:00 Pulse 82 03/28/21 06:09 Resp 19 03/28/21 06:09 BP 117/84 03/28/21 06:09 Pulse Ox 96 03/27/21 17:16 Body Mass Index 21.5 Neuro: Other: She was alert and awake mostly looking to the left mumbling and playing with blood pressure cuff. When I reached her she made eye contact and continued to mumble. In between she would answer some questions like where she lived in if she was hungry. When asked who was on her bedside, which was her daughter, she did not give a straight answer and instead said a cuss word. According to her daughter she has been doing that in the past. Face examination revealed mild right-sided flatness. She was moving arms or legs. Plantars were flexors. Otherwise examination was limited. Results Labs CBC & Chem 7: 03/27/21 12:07 03/27/21 12:32 Labs: Short CBC 03/27/21 Range/Units 12:07 WBC 12.7 H (4.8-10.8) X10*3/uL Hgb 12.4 (12.0-16.0) g/dl Hct 38.8 (37.0-47.0) % Plt Count 275 (160-400) X10*3/uL BMP 03/27/21 12:32 Sodium 140 Potassium 4.5 Chloride 110 H Carbon Dioxide 20 L BUN 29 H D Creatinine 1.08 Calcium 9.7 Urine 03/27/21 Range/Units 12:31 Urine Color YELLOW Urine Appearance CLEAR Urine pH 6.0 (5.0-8.0) Ur Specific [place] >= 1.030 H (1.005-1.025) Urine Protein TRACE (NEG-TRACE) MG/DL Urine Glucose (UA) NEG (NEG) MG/DL Noncontrast head CT did not reveal any significant acute abnormality. Moderately severe diffuse atrophy was noted. Chest x-ray did not reveal any significant abnormality. UA was clear. Assessment and Plan (1) Encephalopathy: Status: Acute 70 years old woman who probably has underlying severe Alzheimer's dementia was brought to hospital for sudden change in mental status. He was unable to provide any history. Overall presentation was suggestive of encephalopathy with no obvious metabolic or toxic reason. Epileptic encephalopathy was a possibility. I would suggest obtaining an EEG. Also please check her vitamin B12 and folate levels. (2) Severe dementia: Status: Acute Procedures Date of Service Date of Service: 03/28/21
--- NOTE | 2021-03-28 08:52 | PC.NURSE ---
pt to eeg at this time
--- NOTE | 2021-03-28 08:55 | MHC.CM.PN ---
Addendum entered by Mónica Hines 03/28/21 13:06: JAYRO MET WITH PTS DAUGHTER WHO REPORTS THEY WILL SIGN ONTO HOSPICE HOWEVER THEY ARE UNABLE TO START SERVICES UNTIL NEXT WEEK. PT WILL GO HOME WITH RESUMPTION OF HER VNA SERVICES FOR NOW. PTS DAUGHTER CONCERNED ABOUT WHAT PT IS ABLE TO EAT AND SAYS SHE IS UNABLE TO SWALLOW HER PILLS SO ASK IF SHE COULD HAVE LIQUID MEDS. SHE IS ALSO ASKING ABOUT SUBLINGUAL ATIVAN FOR AGITATION UNTIL HOSPICE STARTS CARE. PT WILL DC HOME TODAY. BLS TRANSPORT ARRANGED FOR 1400 HOURS Addendum entered by Mónica Hines 03/28/21 12:25: PTS , DAUGHTER AND CANDY COUNTER CLERK JITNEY DRIVER CURRENTLY MEETING WITH HOSPICE [facility] Addendum entered by Mónica Hines 03/28/21 12:11: HOSPICE CONSULT PLACED. CM INFORMED THEY WILL BE AVAILABLE TO MEET WITH PTS DAUGHTER SOON. PTS DAUGHTER MADE AWARE. Addendum entered by Mónica Hines 03/28/21 11:54: JAYRO MADE A REFERRAL TO [facility] FOR PT TO BE ASSESSED FOR HOME CARE SERVICES. JAYRO SPOKE TO PTS DAUGHTER WHO IS NOW AT BEDSIDE. SHE REPORTS ONGOING CONCERN THAT SHE WILL NOT BE ABLE TO MANAGE THE PT AT HOME. SHE ASKS WHY THE PT IS NOT ON HOSPICE AT THIS TIME. JAYRO AGREED TO ASK MD IF THIS WOULD BE AN APPROPRIATE CONSULT. Addendum entered by Mónica Hines 03/28/21 11:19: PT SEEN BT PHYSICAL THERAPY AGAIN, SHE CONTINUES TO BE UNABLE TO FOLLOW CUES. JAYRO MET WITH PTS WHO WAS AT BEDSIDE AND INFORMED HIM MEDICARE WOULD NOT COVER SNF PLACEMENT AT THIS TIME. JAYOR DISCUSSED RESPITE STAY HOWEVER HE REPORTS HE WOULD PREFER TO TAKE PT HOME WITH INCREASED CARE. HE WILL ARRANGE FOR THE CAREGIVERS SHE HAD PAEDIATRIC THORACIC PHYSICIAN TO RETURN AND CM WILL MAKE A REFERRAL TO [facility] TO DETERMINE IF THEY ARE ABLE TO ASSIST WITH ANY COMMUNITY SERVICES. PT WILL RESUME [facility]. [facility] WILL NEED A NEW FACE TO FACE ORDER WELL A DC SUMMARY THAT STATES WHAT SERVICES SHE NEEDS. PTS ASKED ABOUT PT GETTING A HOSPITAL BED. JAYRO DID INFORM HIM THAT MEDICARE DOES NOT TYPICALLY COVER THE COST UNLESS PT WERE ON HOSPICE. [facility] WILL ALSO ASSESS PT FOR PALLIATIVE CARE POST DC. Addendum entered by Mónica Hines 03/28/21 10:17: PTS NOW AT BEDSIDE. HE REPORTS HE DOES NOT FEEL HE CAN GIVE THE PT THE CARE SHE NEEDS AT HOME. HE REPORTS HE DOES HAVE SOME PRIVATE PAY HOME SERVICES BUT DOES NOT FEEL HE CAN GET ANYMORE AND IS OFTEN THE ONLY ONE WITH THE PT. HE IS OPEN TO SNF PLACEMENT IF POSSIBLE OR INCREASED HOME SERVICES. REFERRALS MADE TO LOCAL SNFS AND REQUEST WILL BE SENT TO PT ASKING THEM TO SEE HER AGAIN NOW THAT SHE IS ALERT. Original Note: CM MET WITH PTS DAUGHTER, YAJAIRA, WHO REPORTS THE PT AND HER LIVE IN AN IN-LAW APARTMENT ATTACHED TO HER HOME. SHE REPORTS THEY CURRENTLY HAVE ASSISTANCE FROM HER MOTHER IN LAW WHO COMES TWO HOURS EVERY -W-FR, AND A SPECTROSCOPIST THAT COMES TO DO SHOWERS Q FRI AND FRI, WELL SOMEONE WHO COMES -W-F-SA-NORMAN FROM 9A- AND 06-09. SHE REPORTS THE PT HAD NO DME PAEDIATRIC THORACIC PHYSICIAN SHE WAS ABLE TO AMBULATE AND SHE OR HER FATHER WERE ALWAYS THERE TO ASSIST HER. 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 CM DID EXPLAIN THAT BASED ON PTS PT CHEVYAL SHE LIKELY WOULD NOT BE ABLE TO GO TO [facility] HOWEVER SHE REPORTS SHE DOES NOT REALLY WANT HER TO GO TO A SENIOR LIVING. SHE REPORTS SHE WAS HOPING THEY COULD GET INCREASED HELP IN THE HOME. SHE REPORTS SHE IS MOSTLY CONCERNED THAT IN THE MORNING SHE WILL HAVE TO LEAVE FOR WORK AND HER FATHER WOULD NOT BE ABLE TO ROLL HER ON HIS OWN TO ENSURE SHE STAYED DRY AND CLEAN. YAJAIRA BELIEVES THE PT IS ACTIVE WITH [facility]. REFERRAL SENT TO CONFIRM. SHE ALSO REPORTS THEY WORK WITH A COMMUNITY CM. T/W WILL ATTEMPT TO CONTACT THE COMMUNITY CM TO DETERMINE IF THERE IS ANY WAY SHE CAN ASSIST WITH GETTING INCREASED SERVICES IN THE HOME, CM WILL ALSO MAKE A REFERRAL TO [facility] TO DETERMINE IF THEY ARE ABLE TO ASSIST IN ANY WAY. YAJAIRA REPORTS THERE ARE FOUR STAIRS TO ENTER THE PTS APARTMENT, SHE WOULD NEED BLS TRANSPORT HOME. [facility] CONFIRMS THE PT WAS ACTIVE WITH THEM BUT IS IN NEED OF RE-CERTIFICATION AT THIS TIME. PT WILL NEED NEW ORDERS AT CT.
--- NOTE | 2021-03-28 10:01 | PC.NURSE ---
pt return from eeg
[2021-03-28] MEDS: Memantine HCl 10 MG TABLET PO (10:24)
[2021-03-28] MEDS: QUEtiapine Fumarate 50 MG TABLET PO ×2 (10:24→13:22)
[2021-03-28] MEDS: levETIRAcetam 500 MG TABLET PO (10:24)
[2021-03-28] MEDS: Sertraline HCL 100 MG TABLET PO (10:24)
[2021-03-28 11:04] VITALS: BP 117/84; PULSE 82
[2021-03-28 12:27] LABS: Thyroid Stimulating Hormone 1.09 uIU/mL (0.32-4.0)
[2021-03-28 12:54] VITALS: BP 131/68; PULSE 89; RESP 18
[2021-03-28 12:54] LABS: Folate 10.6 ng/mL (> or = 4.0); Vitamin B12 235 pg/mL (200-900)
--- NOTE | 2021-03-28 13:25 | PC.NURSE ---
BP and HR stable. Unable to obtain pulse-ox due to pt movement but pt is PWD. She took pills crushed in pudding. Pt also ate half of vanilla pudding w/o difficulty.
--- NOTE | 2021-03-28 13:59 | P.DS_ITS ---
DS: Providers Provider Date of Service: 03/28/21 Date of admission: 03/27/21 17:44 Primary care physician: Jonathan Marks Consults: 03/27/21 18:00 Consult to Neurology Routine Consulting Provider: [facility] Reason for consultation: tremors DS: Diagnosis Discharge Diagnosis (1) Encephalopathy: Status: Acute (2) Severe dementia: Status: Acute DS: Summary Hospital Course Hospital Course: Patient was observed overnight and did not have seizure or any new neuro event, she continue be confused and declining, work up included CT showing no acute finding, EEG showed no new seizure activity and was evaluated by Neurologist Dr. Porter we believe this is a progressive of her Alzheimer dementia and will likely continue to decline. Family has opted fo hospice care to likely resume next week, she will be prescribed ativan for anxiety. Plan was discussed with and daughter Time Spent with Patient Time attestation: Total time spent providing and/or coordinating discharge services: Discharge coordination time: Greater than 30 minutes Quality: Stroke Does the patient have a stroke diagnosis?: No Physical Exam Vital Signs: Vital Signs: Last Vital Signs Temp 98.7 F 03/27/21 12:00 Pulse 89 03/28/21 12:54 Resp 18 03/28/21 12:54 BP 131/68 03/28/21 12:54 Pulse Ox 96 03/27/21 17:16 Body Mass Index 21.5 Const: Other: General: completely desoriented Resp: CTA bilateral CVS: S1,S2,RRR GI: +BS, NT, no distention Skin: No rash Neuro: motor grossly intact Psych: flat DS: Data Data Completed and Pending Labs on day of discharge: Laboratory Results - last 24 hr 03/27/21 03/27/21 03/27/21 12:32 12:32 14:17 Vitamin B12 235 Folate 10.6 TSH 1.09 COVID-19 (JEY) Negative COVID-19 Clin Com See Note Discharge Plan Discharge Anticipated Discharge Date/Time: 03/28/21 11:51 Patient Disposition: Home Health Service Discharge Diagnosis: Progressive dementia Referrals: Jonathan Marks [Primary Care Provider] - 1 Week Discharge Medications: New lorazepam [Ativan] 0.5 mg tablet 0.5 mg PO TID PRN (Reason: anxiety) Qty: 15 RF: 0 Continued levetiracetam [Keppra] 500 mg tablet 500 mg PO BID Qty: 30 RF: 0 sertraline 100 mg tablet 1 tab PO DAILY RF: 0 travoprost 0.004 % drops 1 drp ophthalmic (eye) BEDTIME RF: 0 memantine 10 mg tablet 1 tab PO BID RF: 0 quetiapine 50 mg tablet 50 mg PO QID RF: 0 Rhopressa 0.02 % drops 1 drp ophthalmic (eye) DAILY RF: 0 Discharge Orders: Discharge Order (Routine); Ordered 03/28/21 Ordered By: George Parikh Diet: advance to usual diet Activity on Discharge: As tolerated Stand Alone Forms: Patient Portal Discharge page Care Plan Goals: comfort care Health Concerns: progressive dementia Plan of Treatment: Follow up with hospic next week take ativan for anxiety Assessment: As above
== END 2021-03-28 14:20 | disposition home health service (06) ==
LOC: HO.ED 16:32 → HO.EDOVER 17:50 → HO.IMC 03-28 13:28 → HO.EDOVER 03-28 13:56
PROVIDERS: Admitting Provider Internal Medicine; Emergency Provider Emergency Medicine; PCP Hospitalist; Visit Provider Internal Medicine
DX: G30.1 Alzheimer's disease with late onset (principal); F02.81 Dementia in other diseases classified elsewhere, unspecified severity, with behavioral disturbance; R41.82 Altered mental status, unspecified; R56.9 Unspecified convulsions; G93.40 Encephalopathy, unspecified; R06.4 Hyperventilation; F32.A Depression, unspecified; Z20.822 Contact with and (suspected) exposure to COVID-19; Z91.81 History of falling; Z79.899 Other long term (current) drug therapy
CPT/HCPCS: 36415; 70450; 71045; 80048; 81001; 82607; 82746; 84443; 84484; 85025; 87635; 93005; 95816; 96360; 96361; 97162; 97163; 99218; 99285